=== PATIENT | male | born 1960 | race African-American/Black ===

== ENCOUNTER 2018-08-28 18:18 | Inpatient (IN) | payer OTHER ==
[2018-08-28 19:54] VITALS: BMI 23.6
--- NOTE | 2018-08-29 00:52 | HP ---
CIWA Score Nausea/Vomitin-No Nausea/No Vomiting Muscle Tremors: 4-Moderate,w/Arms Extend Anxiety: 1-Mildly Anxious Agitation: 4-Moderately Restless Paroxysmal Sweats: 3 Orientation: 0-Oriented Tacttile Disturbances: 0-None Auditory Disturbances: 0-None Visual Disturbances: 0-None Headache: 0-None Present CIWA-Ar Total Score: 12 - Admission Criteria OAS Guidelines: Admission for Medically Managed Detox: Requires at least one of the followin. CIWA greater than 12 2. Seizures within the past 24 hours 3. Delirium tremens within the past 24 hours 4. Hallucinations within the past 24 hours 5. Acute intervention needed for co occurring medical disorder 6. Acute intervention needed for co occurring psychiatric disorder 7. Severe withdrawal that cannot be handled at a lower level of care (continued vomiting, continued diarrhea, abnormal vital signs) requiring intravenous medication and/or fluids 8. Patient presents the following: CIWA greater than 12 Admission Criteria Met: Admission criteria met Admission ROS [facility] Chief Complaint: C/O WORSENING WITHDRAWAL SX'S. SEEKING DETOX FROM ALCOHOL Allergies/Adverse Reactions: Allergies Allergy/AdvReac Type Severity Reaction Status Date / Time No Known Allergies Allergy Verified 03/13/14 09:31 History of Present Illness: 58 Y.O. MALE WITH ALCOHOLISM HERE FOR DETOX. CLIENT IS KNOWN TO THIS PROGRAM. LAST HERE 2013. HE WAS REFERRED BY [facility] AFTER PRESENTING THERE FOR DETOX. HE PRESENTS NOW WITH C/O WORSENING WITHDRAWAL SX'S. CIWA 12. DENIES ANY PMHX/ PSYCH. REPORTS LONGEST CLEAN TIME 1.5 YEARS WHILE INCARCERATED, DENIES ANY CLEAN TIME IN THE PAST YEAR. DENIES PAST/PRESENT SI/HI/AVH, SEIZURE D/O. LIVES IN A SENIOR CARE, EMPLOYED, DENIES LEGALS. Exam Limitations: No Limitations - Ebola screening Have you traveled outside of the country in the last 21 days: No Have you had contact with anyone from an Ebola affected area: No Have you been sick,other than usual withdrawal symptoms: No Do you have a fever: No - Review of Systems Constitutional: Chills, Loss of Appetite, Malaise, Night Sweats, Changes in sleep EENT: reports: No Symptoms Reported Respiratory: reports: No Symptoms reported Cardiac: reports: No Symptoms Reported GI: reports: Poor Appetite, Poor Fluid Intake : reports: No Symptoms Reported Musculoskeletal: reports: Joint Pain, Muscle Pain Integumentary: reports: No Symptoms Reported Neuro: reports: No Symptoms reported Endocrine: reports: No Symptoms Reported Hematology: reports: No Symptoms Reported Psychiatric: reports: Anxious, Depressed Other Systems: Reviewed and Negative Patient History - Patient Medical History Hx Anemia: No Hx Asthma: No Hx Chronic Obstructive Pulmonary Disease (COPD): No Hx Cancer: No Hx Cardiac Disorders: No Hx Congestive Heart Failure: No Hx Hypertension: No Hx Hypercholesterolemia: No Hx Pacemaker: No HX Cerebrovascular Accident: No Hx Seizures: No Hx Dementia: No Hx Diabetes: No Hx Gastrointestinal Disorders: No Hx Liver Disease: No (Hep B treated 2011) Hx Genitourinary Disorders: No Hx Sexually Transmitted Disorders: No Hx Renal Disease (ESRD): No Hx Thyroid Disease: No Hx Human Immunodeficiency Virus (HIV): No Hx Hepatitis C: No Hx Depression: No Hx Suicide Attempt: No Hx Bipolar Disorder: No Hx Schizophrenia: No - Patient Surgical History Past Surgical History: No Hx Neurologic Surgery: No Hx Cataract Extraction: No Hx Cardiac Surgery: No Hx Lung Surgery: No Hx Breast Surgery: No Hx Breast Biopsy: No Hx Abdominal Surgery: No Hx Appendectomy: No Hx Cholecystectomy: No Hx Genitourinary Surgery: No Hx Section: No Hx Orthopedic Surgery: No Anesthesia Reaction: No - PPD History Previous Implant?: Yes Documented Results: Negative w/proof Implanted On Prior R Admission?: Yes Date: 03/15/14 Results: 0MM PPD to be Administered?: Yes - Smoking Cessation Smoking history: Current every day smoker Have you smoked in the past 12 months: Yes Aproximately how many cigarettes per day: 5 Cigars Per Day: 0 Hx Chewing Tobacco Use: No Initiated information on smoking cessation: Yes 'Breaking Loose' booklet given: 08/29/18 - Substance & Tx. History Hx Alcohol Use: Yes Hx Substance Use: Yes Substance Use Type: Alcohol, Cocaine, Marijuana Hx Substance Use Treatment: Yes ([facility]) - Substances Abused LIQUOR/BEER Route: Oral Frequency: Daily Amount used: 1/2 PINT/ 5-24OZ Age of first use: 19 Date of Last Use: 08/28/18 COCAINE Route: Smoking Frequency: Daily Amount used: 100 Age of first use: 32 Date of Last Use: 08/28/18 THC Route: Smoking Frequency: Daily Amount used: 10 Age of first use: 19 Date of Last Use: 08/28/18 Family Disease History - Family Disease History Family Disease History: Other: Father () Admission Physical Exam [facility] - Vital Signs Vital Signs: Vital Signs - 24 hr 08/28/18 19:52 Temperature 97.7 F Pulse Rate 76 Respiratory 18 Rate Blood Pressure 139/79 - Physical General Appearance: Yes: Appropriately Dressed, Mild Distress, Tremorous (FELT) , Irritable, Sweating, Anxious HEENTM: Yes: EOMI, Normocephalic, Normal Voice, MARC, Pharynx Normal Respiratory: Yes: Chest Non-Tender, Lungs Clear, Normal Breath Sounds, No Respiratory Distress, No Accessory Muscle Use Neck: Yes: No masses,lesions,Nodules, Supple, Trachea in good position Breast: Yes: Breast Exam Deferred Cardiology: Yes: Regular Rhythm, Regular Rate, S1, S2 Abdominal: Yes: Normal Bowel Sounds, Non Tender, Flat, Soft Genitourinary: Yes: Other (NO C/O) Back: Yes: Normal Inspection Musculoskeletal: Yes: full range of Motion, Gait Steady Extremities: Yes: Normal Range of Motion, Non-Tender, Tremors Neurological: Yes: Fully Oriented, Alert, Motor Strength 5/5, Depressed Affect Integumentary: Yes: Warm, Moist Lymphatic: Yes: Within Normal Limits - Diagnostic (1) Alcohol dependence with uncomplicated withdrawal Current Visit: Yes Status: Acute (2) Nicotine dependence Current Visit: Yes Status: Chronic Qualifiers: Nicotine product type: cigarettes Substance use status: uncomplicated Qualified Code(s): F17.210 - Nicotine dependence, cigarettes, uncomplicated (3) Cannabis dependence, uncomplicated Current Visit: Yes Status: Acute (4) Depressed affect Current Visit: Yes Status: Suspected (5) At risk for dehydration due to poor fluid intake Current Visit: Yes Status: Acute (6) Cocaine dependence Current Visit: Yes Status: Acute Qualifiers: Substance use status: uncomplicated Qualified Code(s): F14.20 - Cocaine dependence, uncomplicated Cleared for Admission [facility] - Detox or Rehab [facility] Level of Care: Medically Managed Detox Regimen/Protocol: Librium Claeared for Rehab Admission: No [facility] Breath Alcohol Content Breath Alcohol Content: 0.031 Urine Drug Screen - Results Drug Screen Negative: No Urine Drug Screen Results: THC-Marijuana, MARGAUX-Cocaine
[2018-08-29] MEDS ORDERED: MAGNESIUM CITRATE 300 ML BOTTLE PO PRN (01:02)
[2018-08-29] MEDS ORDERED: P-EPHED 60MG/TRIPROLIDI 2.5MG TABLET PO PRN (01:02)
[2018-08-29] MEDS ORDERED: MAGNESIUM HYDROX 2400MG/30ML ORAL SUSPENSION 30 ML CUP PO PRN (01:02)
[2018-08-29] MEDS ORDERED: NICOTINE POLACRILEX 2 MG GUM BC PRN (01:02)
[2018-08-29] MEDS ORDERED: MAG HYDROX/AL HYDROX/SIMETH 30 ML UNIT-DOSE CUP PO PRN (01:02)
[2018-08-29] MEDS ORDERED: MENTHOL/PHENOL 1 EACH UD MM PRN (01:02)
[2018-08-29] MEDS ORDERED: chlordiazePOXIDE HCL 25 MG CAPSULE PO PRN (01:02)
[2018-08-29] MEDS ORDERED: guaiFENesin/D-METHORPHAN HB 10 ML UNIT-DOSE CUPS PO PRN (01:02)
[2018-08-29] MEDS ORDERED: ACETAMINOPHEN 325 MG TABLET (FP) PO PRN (01:02)
[2018-08-29] MEDS ORDERED: IBUPROFEN 400 MG TABLET (FP) PO PRN (01:02)
[2018-08-29] MEDS ORDERED: hydrOXYzine PAMOATE 50 MG CAPSULE (FP) PO PRN (01:02)
[2018-08-29] MEDS ORDERED: LOPERAMIDE HCL 2 MG CAPSULE PO PRN (01:02)
[2018-08-29] MEDS: chlordiazePOXIDE HCL 25 MG CAPSULE PO SCH ×4 (05:16→22:23)
[2018-08-29 10:12] LABS: HEMATOCRIT 44.1 % (35.4-49); HEMOGLOBIN 14.6 GM/dL (11.7-16.9); MCH 32.1 pg (25.7-33.7); MCHC 33.1 g/dl (32.0-35.9); MEAN PLT VOLUME 7.3 fl (7.5-11.1); PLATELET COUNT 227 K/MM3 (134-434); RBC 4.55 M/mm3 (4.00-5.60); WHITE BLOOD COUNT 4.8 K/mm3 (4.0-10.0)
[2018-08-29 10:16] LABS: ALBUMIN 3.5 g/dl (3.4-5.0); ALK PHOS 102 U/L (45-117); ANION GAP 7 MMOL/L (8-16); BILIRUBIN,TOTAL 1.2 mg/dL (0.2-1); BLOOD UREA NITROGEN 15 mg/dL (7-18); CALCIUM 8.4 mg/dL (8.5-10.1); CHLORIDE 103 mmol/L (98-107); CO2 29 mmol/L (21-32); CREATININE 1.2 mg/dL (0.55-1.3); GLUCOSE,RANDOM 89 mg/dL (74-106); POTASSIUM 3.8 mmol/L (3.5-5.1); SGOT/AST 36 U/L (15-37); SGPT/ALT 31 U/L (13-61); SODIUM 139 mmol/L (136-145); TOT PROT 6.7 g/dl (6.4-8.2)
[2018-08-29] MEDS: PRENATAL VITAMINS W/ FOLIC ACID TABLET (FP) PO SCH (10:17)
[2018-08-29] MEDS: NICOTINE 14 MG/24 HOURS TOPICAL PATCH TD SCH (10:18)
[2018-08-29 10:21] LABS: URINE APPEARANCE CLEAR; URINE BILIRUBIN NEGATIVE (<2.0 mg/dL); URINE COLOR YELLOW; URINE GLUCOSE (UA) NEGATIVE (NEGATIVE); URINE KETONE NEGATIVE (NEGATIVE); URINE LEUK ESTERASE NEGATIVE (NEGATIVE); URINE NITRITE NEGATIVE (NEGATIVE); URINE PROTEIN NEGATIVE (NEGATIVE); URINE UROBILINOGEN 4.0 E.U/dl mg/dL (0.2-1.0)
--- NOTE | 2018-08-29 10:45 | PN ---
S CIWA - CIWA Score Nausea/Vomitin-No Nausea/No Vomiting Muscle Tremors: 3 Anxiety: 1-Mildly Anxious Agitation: 2 Paroxysmal Sweats: 1-Minimal Palms Moist Orientation: 1-Uncertain about Date Tacttile Disturbances: 0-None Auditory Disturbances: 0-None Visual Disturbances: 0-None Headache: 2-Mild CIWA-Ar Total Score: 10 S Progress Note (SOAP) Subjective: tremor sweat restlessness trouble resting at night Objective: 08/29/18 10:44 Vital Signs Temperature 97.4 F L 08/29/18 09:04 Pulse Rate 61 08/29/18 09:04 Respiratory Rate 18 08/29/18 09:04 Blood Pressure 118/66 08/29/18 09:04 O2 Sat by Pulse Oximetry (%) Laboratory Last Values WBC 4.8 K/mm3 (4.0-10.0) 08/29/18 07:00 RBC 4.55 M/mm3 (4.00-5.60) 08/29/18 07:00 Hgb 14.6 GM/dL (11.7-16.9) 08/29/18 07:00 Hct 44.1 % (35.4-49) 08/29/18 07:00 MCV 97.0 fl (80-96) H 08/29/18 07:00 MCH 32.1 pg (25.7-33.7) 08/29/18 07:00 MCHC 33.1 g/dl (32.0-35.9) 08/29/18 07:00 RDW 13.0 % (11.9-15.9) 08/29/18 07:00 Plt Count 227 K/MM3 (134-434) D 08/29/18 07:00 MPV 7.3 fl (7.5-11.1) L D 08/29/18 07:00 Sodium 139 mmol/L (136-145) 08/29/18 07:00 Potassium 3.8 mmol/L (3.5-5.1) 08/29/18 07:00 Chloride 103 mmol/L (98-107) 08/29/18 07:00 Carbon Dioxide 29 mmol/L (21-32) 08/29/18 07:00 Anion Gap 7 MMOL/L (8-16) L 08/29/18 07:00 BUN 15 mg/dL (7-18) 08/29/18 07:00 Creatinine 1.2 mg/dL (0.55-1.3) 08/29/18 07:00 Creat Clearance w eGFR > 60 (>60) 08/29/18 07:00 Random Glucose 89 mg/dL (74-106) 08/29/18 07:00 Calcium 8.4 mg/dL (8.5-10.1) L 08/29/18 07:00 Total Bilirubin 1.2 mg/dL (0.2-1) H 08/29/18 07:00 AST 36 U/L (15-37) 08/29/18 07:00 ALT 31 U/L (13-61) 08/29/18 07:00 Alkaline Phosphatase 102 U/L (45-117) 08/29/18 07:00 Total Protein 6.7 g/dl (6.4-8.2) 08/29/18 07:00 Albumin 3.5 g/dl (3.4-5.0) 08/29/18 07:00 Urine Color Yellow 08/29/18 07:38 Urine Appearance Clear 08/29/18 07:38 Urine pH 5.0 (5.0-8.0) 08/29/18 07:38 Ur Specific [place] 1.023 (1.010-1.035) 08/29/18 07:38 Urine Protein Negative (NEGATIVE) 08/29/18 07:38 Urine Glucose (UA) Negative (NEGATIVE) 08/29/18 07:38 Urine Ketones Negative (NEGATIVE) 08/29/18 07:38 Urine Blood Negative (NEGATIVE) 08/29/18 07:38 Urine Nitrite Negative (NEGATIVE) 08/29/18 07:38 Urine Bilirubin Negative (<2.0 mg/dL) 08/29/18 07:38 Urine Urobilinogen 4.0 e.u/dl mg/dL (0.2-1.0) 08/29/18 07:38 Ur Leukocyte Esterase Negative (NEGATIVE) 08/29/18 07:38 lab noted Assessment: 08/29/18 10:44 withdrawal sx Plan: continue detox
[2018-08-29] MEDS ORDERED: MELATONIN 5 MG TABLETS PO PRN (22:00)
[2018-08-29] MEDS: THIAMINE HCL 100 MG TABLET (FP) PO SCH (22:23)
[2018-08-30] MEDS: chlordiazePOXIDE HCL 25 MG CAPSULE PO SCH ×4 (06:12→22:41)
[2018-08-30] MEDS: NICOTINE 14 MG/24 HOURS TOPICAL PATCH TD SCH (10:09)
[2018-08-30] MEDS: PRENATAL VITAMINS W/ FOLIC ACID TABLET (FP) PO SCH (10:09)
--- NOTE | 2018-08-30 10:09 | PN ---
S CIWA - CIWA Score Nausea/Vomitin Muscle Tremors: 2 Anxiety: 2 Agitation: 2 Paroxysmal Sweats: 1-Minimal Palms Moist Orientation: 0-Oriented Tacttile Disturbances: 1-Very Mild Itch/Numbness Auditory Disturbances: 1-Very Mild Visual Disturbances: 0-None Headache: 2-Mild CIWA-Ar Total Score: 13 [facility] Progress Note (SOAP) Subjective: alert,irritable,anxious,interrupted sleep,tremor Objective: 08/30/18 10:08 Vital Signs Temperature 97.2 F L 08/30/18 06:25 Pulse Rate 55 L 08/30/18 09:50 Respiratory Rate 16 08/30/18 09:50 Blood Pressure 123/84 08/30/18 09:50 O2 Sat by Pulse Oximetry (%) Laboratory Last Values WBC 4.8 K/mm3 (4.0-10.0) 08/29/18 07:00 RBC 4.55 M/mm3 (4.00-5.60) 08/29/18 07:00 Hgb 14.6 GM/dL (11.7-16.9) 08/29/18 07:00 Hct 44.1 % (35.4-49) 08/29/18 07:00 MCV 97.0 fl (80-96) H 08/29/18 07:00 MCH 32.1 pg (25.7-33.7) 08/29/18 07:00 MCHC 33.1 g/dl (32.0-35.9) 08/29/18 07:00 RDW 13.0 % (11.9-15.9) 08/29/18 07:00 Plt Count 227 K/MM3 (134-434) D 08/29/18 07:00 MPV 7.3 fl (7.5-11.1) L D 08/29/18 07:00 Sodium 139 mmol/L (136-145) 08/29/18 07:00 Potassium 3.8 mmol/L (3.5-5.1) 08/29/18 07:00 Chloride 103 mmol/L (98-107) 08/29/18 07:00 Carbon Dioxide 29 mmol/L (21-32) 08/29/18 07:00 Anion Gap 7 MMOL/L (8-16) L 08/29/18 07:00 BUN 15 mg/dL (7-18) 08/29/18 07:00 Creatinine 1.2 mg/dL (0.55-1.3) 08/29/18 07:00 Creat Clearance w eGFR > 60 (>60) 08/29/18 07:00 Random Glucose 89 mg/dL (74-106) 08/29/18 07:00 Calcium 8.4 mg/dL (8.5-10.1) L 08/29/18 07:00 Total Bilirubin 1.2 mg/dL (0.2-1) H 08/29/18 07:00 AST 36 U/L (15-37) 08/29/18 07:00 ALT 31 U/L (13-61) 08/29/18 07:00 Alkaline Phosphatase 102 U/L (45-117) 08/29/18 07:00 Total Protein 6.7 g/dl (6.4-8.2) 08/29/18 07:00 Albumin 3.5 g/dl (3.4-5.0) 08/29/18 07:00 Urine Color Yellow 08/29/18 07:38 Urine Appearance Clear 08/29/18 07:38 Urine pH 5.0 (5.0-8.0) 08/29/18 07:38 Ur Specific [place] 1.023 (1.010-1.035) 08/29/18 07:38 Urine Protein Negative (NEGATIVE) 08/29/18 07:38 Urine Glucose (UA) Negative (NEGATIVE) 08/29/18 07:38 Urine Ketones Negative (NEGATIVE) 08/29/18 07:38 Urine Blood Negative (NEGATIVE) 08/29/18 07:38 Urine Nitrite Negative (NEGATIVE) 08/29/18 07:38 Urine Bilirubin Negative (<2.0 mg/dL) 08/29/18 07:38 Urine Urobilinogen 4.0 e.u/dl mg/dL (0.2-1.0) 08/29/18 07:38 Ur Leukocyte Esterase Negative (NEGATIVE) 08/29/18 07:38 RPR Titer Nonreactive (NONREACTIVE) 08/29/18 07:00 HIV 1&2 Antibody Screen Negative 08/29/18 07:00 HIV P24 Antigen Negative 08/29/18 07:00 Assessment: 08/30/18 10:08 withdrawal symptom Plan: continue detox
[2018-08-30] MEDS: THIAMINE HCL 100 MG TABLET (FP) PO SCH (22:40)
[2018-08-31] MEDS: chlordiazePOXIDE 5 MG CAPSULE PO SCH ×4 (05:11→22:37)
[2018-08-31] MEDS: PRENATAL VITAMINS W/ FOLIC ACID TABLET (FP) PO SCH (10:52)
[2018-08-31] MEDS: NICOTINE 14 MG/24 HOURS TOPICAL PATCH TD SCH (10:53)
--- NOTE | 2018-08-31 12:01 | PN ---
[facility] Progress Note (SOAP) Subjective: DETOX PROCEEDING WELL. 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 PT WAS GIVEN A PPD ON ADMISSION WITH RAISED INDURATION. PT WAS REMINDED TO REPORT HX IN FUTURE. Objective: 08/31/18 11:59 Vital Signs 08/31/18 08/31/18 06:08 09:54 Temperature 97 F L 96.9 F L Pulse Rate 60 70 Respiratory 18 18 Rate Blood Pressure 95/60 120/78 Laboratory Tests 08/29/18 08/29/18 08/29/18 07:00 07:00 07:00 WBC 4.8 RBC 4.55 Hgb 14.6 Hct 44.1 MCV 97.0 H MCH 32.1 MCHC 33.1 RDW 13.0 Plt Count 227 D MPV 7.3 L D Sodium 139 Potassium 3.8 Chloride 103 Carbon Dioxide 29 Anion Gap 7 L BUN 15 Creatinine 1.2 Creat Clearance w eGFR > 60 Random Glucose 89 Calcium 8.4 L Total Bilirubin 1.2 H AST 36 ALT 31 Alkaline Phosphatase 102 Total Protein 6.7 Albumin 3.5 Urine Color Urine Appearance Urine pH Ur Specific [place] Urine Protein Urine Glucose (UA) Urine Ketones Urine Blood Urine Nitrite Urine Bilirubin Urine Urobilinogen Ur Leukocyte Esterase RPR Titer Nonreactive HIV 1&2 Antibody Screen HIV P24 Antigen 08/29/18 08/29/18 07:00 07:38 WBC RBC Hgb Hct MCV MCH MCHC RDW Plt Count MPV Sodium Potassium Chloride Carbon Dioxide Anion Gap BUN Creatinine Creat Clearance w eGFR Random Glucose Calcium Total Bilirubin AST ALT Alkaline Phosphatase Total Protein Albumin Urine Color Yellow Urine Appearance Clear Urine pH 5.0 Ur Specific [place] 1.023 Urine Protein Negative Urine Glucose (UA) Negative Urine Ketones Negative Urine Blood Negative Urine Nitrite Negative Urine Bilirubin Negative Urine Urobilinogen 4.0 e.u/dl Ur Leukocyte Esterase Negative RPR Titer HIV 1&2 Antibody Screen Negative HIV P24 Antigen Negative Assessment: 08/31/18 11:59 SLIGHT W/S NAD Plan: CONTINUE DETOX. FOLLOW UP WITH [facility] IN AM PER DISCHARGE PLANNING. CXR ON SUNDAY WHILE IN REHAB
--- NOTE | 2018-08-31 12:59 | EKG ---
Test Reason : Blood Pressure : / mmHG Vent. Rate : 055 BPM Atrial Rate : 055 BPM P-R Int : 194 ms QRS Dur : 084 ms QT Int : 462 ms P-R-T Axes : 069 052 047 degrees QTc Int : 441 ms SINUS BRADYCARDIA LEFT ATRIAL ENLARGEMENT MINIMAL VOLTAGE CRITERIA FOR LVH, MAY BE NORMAL VARIANT BORDERLINE ECG NO PREVIOUS ECGS AVAILABLE Confirmed by MD GABRIELA, LAKEISHA ([id number]) on 08/31/2018 12:58:39 PM Referred By: Confirmed By:LAKEISHA OCHOA MD
[2018-08-31 21:00] VITALS: BP 118/67; PULSE 71; TEMP 98.6
[2018-08-31] MEDS: THIAMINE HCL 100 MG TABLET (FP) PO SCH (22:37)
--- NOTE | 2018-08-31 22:51 | DS ---
[facility] Detox Discharge Summary Admission Date: 08/28/18 Discharge Date: 08/31/18 - History Additional Comments: Patient is leaving against medical advice stating that he has personal business to take care of. Risks and consequences of his action reinforced. Patient is alert and oriented to person, place and time. Vital signs stable and he is in no acute distress at this time. He signed the AMA form and left. 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 Pertinent Past History: Alcohol, cannabis and cocaine dependence, Positive PPD and nicotine dependence - Physical Exam Results Vital Signs: Vital Signs Temperature 98.6 F 08/31/18 20:59 Pulse Rate 71 08/31/18 20:59 Respiratory Rate 20 08/31/18 20:59 Blood Pressure 118/67 08/31/18 20:59 O2 Sat by Pulse Oximetry (%) Laboratory Last Values WBC 4.8 K/mm3 (4.0-10.0) 08/29/18 07:00 RBC 4.55 M/mm3 (4.00-5.60) 08/29/18 07:00 Hgb 14.6 GM/dL (11.7-16.9) 08/29/18 07:00 Hct 44.1 % (35.4-49) 08/29/18 07:00 MCV 97.0 fl (80-96) H 08/29/18 07:00 MCH 32.1 pg (25.7-33.7) 08/29/18 07:00 MCHC 33.1 g/dl (32.0-35.9) 08/29/18 07:00 RDW 13.0 % (11.9-15.9) 08/29/18 07:00 Plt Count 227 K/MM3 (134-434) D 08/29/18 07:00 MPV 7.3 fl (7.5-11.1) L D 08/29/18 07:00 Sodium 139 mmol/L (136-145) 08/29/18 07:00 Potassium 3.8 mmol/L (3.5-5.1) 08/29/18 07:00 Chloride 103 mmol/L (98-107) 08/29/18 07:00 Carbon Dioxide 29 mmol/L (21-32) 08/29/18 07:00 Anion Gap 7 MMOL/L (8-16) L 08/29/18 07:00 BUN 15 mg/dL (7-18) 08/29/18 07:00 Creatinine 1.2 mg/dL (0.55-1.3) 08/29/18 07:00 Creat Clearance w eGFR > 60 (>60) 08/29/18 07:00 Random Glucose 89 mg/dL (74-106) 08/29/18 07:00 Calcium 8.4 mg/dL (8.5-10.1) L 08/29/18 07:00 Total Bilirubin 1.2 mg/dL (0.2-1) H 08/29/18 07:00 AST 36 U/L (15-37) 08/29/18 07:00 ALT 31 U/L (13-61) 08/29/18 07:00 Alkaline Phosphatase 102 U/L (45-117) 08/29/18 07:00 Total Protein 6.7 g/dl (6.4-8.2) 08/29/18 07:00 Albumin 3.5 g/dl (3.4-5.0) 08/29/18 07:00 Urine Color Yellow 08/29/18 07:38 Urine Appearance Clear 08/29/18 07:38 Urine pH 5.0 (5.0-8.0) 08/29/18 07:38 Ur Specific [place] 1.023 (1.010-1.035) 08/29/18 07:38 Urine Protein Negative (NEGATIVE) 08/29/18 07:38 Urine Glucose (UA) Negative (NEGATIVE) 08/29/18 07:38 Urine Ketones Negative (NEGATIVE) 08/29/18 07:38 Urine Blood Negative (NEGATIVE) 08/29/18 07:38 Urine Nitrite Negative (NEGATIVE) 08/29/18 07:38 Urine Bilirubin Negative (<2.0 mg/dL) 08/29/18 07:38 Urine Urobilinogen 4.0 e.u/dl mg/dL (0.2-1.0) 08/29/18 07:38 Ur Leukocyte Esterase Negative (NEGATIVE) 08/29/18 07:38 RPR Titer Nonreactive (NONREACTIVE) 08/29/18 07:00 HIV 1&2 Antibody Screen Negative 08/29/18 07:00 HIV P24 Antigen Negative 08/29/18 07:00 Pertinent Admission Physical Exam Findings: Withdrawal symptoms - Medication Discharge Medications: Ambulatory Orders NK [No Known Home Medication] 03/13/14 - Diagnosis (1) Alcohol dependence with uncomplicated withdrawal Current Visit: Yes Status: Acute (2) Cannabis dependence, uncomplicated Current Visit: Yes Status: Acute (3) Cocaine dependence Current Visit: Yes Status: Acute Qualifiers: Substance use status: uncomplicated Qualified Code(s): F14.20 - Cocaine dependence, uncomplicated (4) Nicotine dependence Current Visit: Yes Status: Acute Qualifiers: Nicotine product type: cigarettes Substance use status: in withdrawal Qualified Code(s): F17.213 - Nicotine dependence, cigarettes, with withdrawal (5) History of positive PPD Current Visit: Yes Status: Chronic (6) Substance induced mood disorder Current Visit: No Status: Acute - AMA Did Patient Leave Against Medical Advice: Yes
[2018-09-01] MEDS ORDERED: chlordiazePOXIDE HCL 10 MG CAPSULE PO SCH (05:00)
== END 2018-08-31 23:10 | disposition left against medical advice (07) | DRG 770 ==
LOC: YASAS 18:18 → Y3N 23:31
PROC: HZ2ZZZZ Detoxification Services for Substance Abuse Treatment (ICD-10-PCS; principal; 2018-08-28)
DX: F10.230 Alcohol dependence with withdrawal, uncomplicated (principal); F14.20 Cocaine dependence, uncomplicated; F12.20 Cannabis dependence, uncomplicated; F17.213 Nicotine dependence, cigarettes, with withdrawal; F19.24 Other psychoactive substance dependence with psychoactive substance-induced mood disorder; R45.89 Other symptoms and signs involving emotional state; R76.11 Nonspecific reaction to tuberculin skin test without active tuberculosis; Z86.19 Personal history of other infectious and parasitic diseases; Z91.89 Other specified personal risk factors, not elsewhere classified
CPT/HCPCS: 36415; 80053; 81003; 85027; 86593; 87389; 93005; 93010

== ENCOUNTER 2018-09-02 12:15 | Inpatient (IN) | payer OTHER ==
[2018-09-02 12:42] VITALS: BMI 22.1
--- NOTE | 2018-09-02 15:09 | HP ---
CIWA Score - Admission Criteria [facility] Guidelines: Admission for Medically Managed Detox: Requires at least one of the followin. CIWA greater than 12 2. Seizures within the past 24 hours 3. Delirium tremens within the past 24 hours 4. Hallucinations within the past 24 hours 5. Acute intervention needed for co occurring medical disorder 6. Acute intervention needed for co occurring psychiatric disorder 7. Severe withdrawal that cannot be handled at a lower level of care (continued vomiting, continued diarrhea, abnormal vital signs) requiring intravenous medication and/or fluids 8. Admission ROS [facility] - HPI Chief Complaint: i need help to come in for rehab from alcohol,cocaine and marijuana Allergies/Adverse Reactions: Allergies Allergy/AdvReac Type Severity Reaction Status Date / Time No Known Allergies Allergy Verified 09/02/18 14:54 History of Present Illness: this 58 years old male with alcohol,cocaine,marijuana dependence,seeking rehab, last treatment [facility] from 08/28/18 to 08/31/18,not completed hepatitis b weight loss nicotine dependence Exam Limitations: No Limitations - Ebola screening Have you traveled outside of the country in the last 21 days: No Have you had contact with anyone from an Ebola affected area: No Have you been sick,other than usual withdrawal symptoms: No Do you have a fever: No - Review of Systems Constitutional: No Symptoms Reported EENT: reports: No Symptoms Reported, Other (patial denture upper) Respiratory: reports: No Symptoms reported Cardiac: reports: No Symptoms Reported GI: reports: No Symptoms Reported : reports: No Symptoms Reported Musculoskeletal: reports: No Symptoms Reported Integumentary: reports: No Symptoms Reported Neuro: reports: No Symptoms reported Endocrine: reports: No Symptoms Reported Hematology: reports: No Symptoms Reported Psychiatric: reports: No Sypmtoms Reported, Judgement Intact, Mood/Affect Appropiate, Orientated x3 Other Systems: Reviewed and Negative Patient History - Patient Medical History Hx Anemia: No Hx Asthma: No Hx Chronic Obstructive Pulmonary Disease (COPD): No Hx Cancer: No Hx Cardiac Disorders: No Hx Congestive Heart Failure: No Hx Hypertension: No Hx Hypercholesterolemia: No Hx Pacemaker: No HX Cerebrovascular Accident: No Hx Seizures: No Hx Dementia: No Hx Diabetes: No Hx Gastrointestinal Disorders: No Hx Liver Disease: No (Hep B treated 2011) Hx Genitourinary Disorders: No Hx Sexually Transmitted Disorders: No Hx Renal Disease (ESRD): No Hx Thyroid Disease: No Hx Human Immunodeficiency Virus (HIV): No (last 08/28/18 negative) Hx Hepatitis C: No Hx Depression: No Hx Suicide Attempt: No Hx Bipolar Disorder: No Hx Schizophrenia: No Other Medical History: no suicidal,no homicidal - Patient Surgical History Past Surgical History: No Hx Neurologic Surgery: No Hx Cataract Extraction: No Hx Cardiac Surgery: No Hx Lung Surgery: No Hx Breast Surgery: No Hx Breast Biopsy: No Hx Abdominal Surgery: No Hx Appendectomy: No Hx Cholecystectomy: No Hx Genitourinary Surgery: No Hx Section: No Hx Orthopedic Surgery: No Anesthesia Reaction: No - PPD History Previous Implant?: Yes Documented Results: Positive w/o proof Date: 08/31/18 Results: 15mm PPD to be Administered?: No - Smoking Cessation Smoking history: Current every day smoker Have you smoked in the past 12 months: Yes Aproximately how many cigarettes per day: 5 Cigars Per Day: 0 Hx Chewing Tobacco Use: No Initiated information on smoking cessation: Yes 'Breaking Loose' booklet given: 09/02/18 - Substance & Tx. History Hx Alcohol Use: Yes Hx Substance Use: Yes Substance Use Type: Alcohol, Cocaine, Marijuana Hx Substance Use Treatment: Yes ([facility] 08/28/18 to 08/31/18) - Substances Abused Alcohol Route: Oral Frequency: Daily Amount used: 2-6 24 oz beers Age of first use: 19 Date of Last Use: 08/27/18 Crack Route: Smoking Frequency: 3-6 times per week Amount used: $50-100 Age of first use: 32 Date of Last Use: 08/31/18 Marijuana/Hashish Route: Smoking Frequency: Daily Amount used: $10 Age of first use: 19 Date of Last Use: 08/28/18 Family Disease History - Family Disease History Family Disease History: Other: Father () Admission Physical Exam BHS - Vital Signs Vital Signs: Vital Signs - 24 hr 09/02/18 12:40 Temperature 97.4 F L Pulse Rate 56 L Respiratory 18 Rate Blood Pressure 133/67 - Physical General Appearance: Yes: Within Normal Limits HEENTM: Yes: Within Normal Limits Respiratory: Yes: Within Normal Limits Neck: Yes: Within Normal Limits, Supple, Trachea in good position Breast: Yes: Within Normal Limits Cardiology: Yes: Within Normal Limits, Regular Rhythm, Regular Rate, S1, S2 Abdominal: Yes: Within Normal Limits, Normal Bowel Sounds, Non Tender, Soft Genitourinary: Yes: Within Normal Limits Back: Yes: Within Normal Limits Musculoskeletal: Yes: Within Normal Limits, full range of Motion Extremities: Yes: Within Normal Limits Neurological: Yes: historiography professor II-XII NML intact, Alert, Motor Strength 5/5 Integumentary: Yes: Within Normal Limits Lymphatic: Yes: Within Normal Limits - Diagnostic (1) Alcohol dependence with uncomplicated withdrawal Current Visit: No Status: Acute (2) Cannabis dependence, uncomplicated Current Visit: No Status: Acute (3) Cocaine dependence Current Visit: No Status: Acute Qualifiers: Substance use status: uncomplicated Qualified Code(s): F14.20 - Cocaine dependence, uncomplicated (4) Nicotine dependence Current Visit: No Status: Acute Qualifiers: Nicotine product type: cigarettes Substance use status: in withdrawal Qualified Code(s): F17.213 - Nicotine dependence, cigarettes, with withdrawal (5) History of positive PPD Current Visit: No Status: Chronic Cleared for Admission [facility] - Detox or Rehab Claeared for Rehab Admission: Yes [facility] Breath Alcohol Content Breath Alcohol Content: 0 Urine Drug Screen - Results Drug Screen Negative: No Urine Drug Screen Results: THC-Marijuana, MARGAUX-Cocaine, BZO-Benzodiazepines Inpatient Rehab Admission - Initial Determination Are CD services needed?: Yes Free of communicable disease: Yes Not in need of hospitalization: Yes - Rehab Admission Criteria Previous failed treatment: Yes Poor recovery environment: Yes Comorbidities: Yes Lacks judgement: No Patient is meeting Inpatient Rehab admission criteria:: Yes
[2018-09-02] MEDS ORDERED: LOPERAMIDE HCL 2 MG CAPSULE PO PRN (15:31)
[2018-09-02] MEDS ORDERED: IBUPROFEN 400 MG TABLET (FP) PO PRN (15:31)
[2018-09-02] MEDS ORDERED: ACETAMINOPHEN 325 MG TABLET (FP) PO PRN (15:31)
[2018-09-02] MEDS ORDERED: guaiFENesin/D-METHORPHAN HB 10 ML UNIT-DOSE CUPS PO PRN (15:31)
[2018-09-02] MEDS ORDERED: P-EPHED 60MG/TRIPROLIDI 2.5MG TABLET PO PRN (15:31)
[2018-09-02] MEDS ORDERED: MAGNESIUM HYDROX 2400MG/30ML ORAL SUSPENSION 30 ML CUP PO PRN (15:31)
[2018-09-02] MEDS ORDERED: MAG HYDROX/AL HYDROX/SIMETH 30 ML UNIT-DOSE CUP PO PRN (15:31)
[2018-09-02] MEDS ORDERED: MAGNESIUM CITRATE 300 ML BOTTLE PO PRN (15:31)
[2018-09-02] MEDS ORDERED: MENTHOL/PHENOL 1 EACH UD MM PRN (15:31)
[2018-09-02] MEDS: MELATONIN 5 MG TABLETS PO PRN (21:24)
[2018-09-02] MEDS: THIAMINE HCL 100 MG TABLET (FP) PO SCH (21:24)
[2018-09-03] MEDS: PRENATAL VITAMINS W/ FOLIC ACID TABLET (FP) PO SCH (10:13)
--- NOTE | 2018-09-03 11:31 | HP ---
Psychiatrist Admission - Data Date of interview: 09/03/18 Admission source: Self-referred Identifying data: This is the first [facility] admission for this 58 years old single Black male, employed by a [employer] , homeless Medical History: Significant for history of treatment for PPD+ and Hep B in 2011. Smokes 5 cigarettes daily Psychiatric History: Denies history of previous psychiatric treatment Physical/Sexual Abuse/Trauma History: Denies history of emotional, physical or sexual abuse as well as DV relationship Additional Comment: Denies criminal history Vital Signs: Vital Signs - 24 hr 09/02/18 09/02/18 09/03/18 12:40 17:00 00:30 Temperature 97.4 F L 98.4 F Pulse Rate 56 L 56 L Respiratory 18 18 18 Rate Blood Pressure 133/67 133/68 09/03/18 09/03/18 03:30 06:46 Temperature 97.9 F Pulse Rate 56 L Respiratory 18 18 Rate Blood Pressure 112/57 L Allergies/Adverse Reactions: Allergies Allergy/AdvReac Type Severity Reaction Status Date / Time No Known Allergies Allergy Verified 09/02/18 14:54 Date of last physical exam: 09/02/18 Concur with the findings of this exam: Yes - Substance Abuse/Tx History Hx Alcohol Use: Yes Hx Substance Use: Yes Substance Use Type: Alcohol (Started drinking alcohol at age 19, consumes 2-6x 24oz of beer daily. Last drank on 08/27/18), Cocaine (Started smoking crack cocaine at age 32, consumes $50-100 worth daily. Last smoked on 08/31/18), Marijuana (Started smoking marijuana at age 19, consumes $10 worth daily. Last smoked on 08/28/18) Hx Substance Use Treatment: Yes (multiple previous inpt detox & inpt rehab admissions) Mental Status Exam - Mental Status Exam Alert and Oriented to: Time, Place, Person Cognitive Function: Fair Patient Appearance: Well Groomed Mood: Anxious Affect: Appropriate Patient Behavior: Cooperative Speech Pattern: Clear Voice Loudness: Normal Thought Process: Intact Thought Disorder: Not Present Hallucinations: Denies Suicidal Ideation: Denies Homicidal Ideation: Denies Insight/Judgement: Fair Sleep: Well Appetite: Good Muscle strength/Tone: Normal Gait/Station: Normal Psychiatric Findings - Problem List ([place] 1, 2,3) (1) Alcohol dependence Current Visit: No Status: Acute (2) Cocaine dependence Current Visit: No Status: Acute Qualifiers: Substance use status: uncomplicated Qualified Code(s): F14.20 - Cocaine dependence, uncomplicated (3) Cannabis dependence Current Visit: Yes Status: Acute (4) Nicotine dependence Current Visit: No Status: Chronic Qualifiers: Nicotine product type: cigarettes Substance use status: in withdrawal Qualified Code(s): F17.213 - Nicotine dependence, cigarettes, with withdrawal (5) History of positive PPD Current Visit: No Status: Resolved (6) Hepatitis B Current Visit: Yes Status: Resolved - Initial Treatment Plan Initial Treatment Plan: Monitor progress
[2018-09-03] MEDS: THIAMINE HCL 100 MG TABLET (FP) PO SCH (21:19)
[2018-09-04] MEDS: PRENATAL VITAMINS W/ FOLIC ACID TABLET (FP) PO SCH (10:07)
[2018-09-04] MEDS: MELATONIN 5 MG TABLETS PO PRN (21:12)
[2018-09-04] MEDS: THIAMINE HCL 100 MG TABLET (FP) PO SCH (21:12)
[2018-09-05] MEDS: PRENATAL VITAMINS W/ FOLIC ACID TABLET (FP) PO SCH (10:28)
[2018-09-05] MEDS: THIAMINE HCL 100 MG TABLET (FP) PO SCH (21:23)
[2018-09-05] MEDS: MELATONIN 5 MG TABLETS PO PRN (21:23)
[2018-09-06] MEDS: PRENATAL VITAMINS W/ FOLIC ACID TABLET (FP) PO SCH (10:43)
[2018-09-06] MEDS: THIAMINE HCL 100 MG TABLET (FP) PO SCH (21:26)
[2018-09-07] MEDS: PRENATAL VITAMINS W/ FOLIC ACID TABLET (FP) PO SCH (10:02)
[2018-09-07] MEDS: THIAMINE HCL 100 MG TABLET (FP) PO SCH (21:19)
[2018-09-07] MEDS: hydrOXYzine PAMOATE 50 MG CAPSULE (FP) PO PRN (21:21)
[2018-09-07] MEDS: MELATONIN 5 MG TABLETS PO PRN (21:21)
[2018-09-08] MEDS: PRENATAL VITAMINS W/ FOLIC ACID TABLET (FP) PO SCH (09:58)
[2018-09-08] MEDS: THIAMINE HCL 100 MG TABLET (FP) PO SCH (21:28)
[2018-09-09] MEDS: PRENATAL VITAMINS W/ FOLIC ACID TABLET (FP) PO SCH (10:30)
[2018-09-09] MEDS: hydrOXYzine PAMOATE 50 MG CAPSULE (FP) PO PRN (16:57)
[2018-09-09] MEDS: THIAMINE HCL 100 MG TABLET (FP) PO SCH (21:19)
[2018-09-10] MEDS: PRENATAL VITAMINS W/ FOLIC ACID TABLET (FP) PO SCH (10:04)
[2018-09-10] MEDS: hydrOXYzine PAMOATE 50 MG CAPSULE (FP) PO PRN ×2 (10:05→22:12)
[2018-09-10] MEDS: MELATONIN 5 MG TABLETS PO PRN (21:27)
[2018-09-10] MEDS: THIAMINE HCL 100 MG TABLET (FP) PO SCH (21:27)
[2018-09-11] MEDS: hydrOXYzine PAMOATE 50 MG CAPSULE (FP) PO PRN ×2 (09:55→21:21)
[2018-09-11] MEDS: PRENATAL VITAMINS W/ FOLIC ACID TABLET (FP) PO SCH (09:55)
[2018-09-11] MEDS: THIAMINE HCL 100 MG TABLET (FP) PO SCH (21:20)
[2018-09-12] MEDS: PRENATAL VITAMINS W/ FOLIC ACID TABLET (FP) PO SCH (10:11)
[2018-09-12] MEDS: hydrOXYzine PAMOATE 50 MG CAPSULE (FP) PO PRN ×2 (10:13→21:18)
[2018-09-12] MEDS: THIAMINE HCL 100 MG TABLET (FP) PO SCH (21:18)
[2018-09-13] MEDS: PRENATAL VITAMINS W/ FOLIC ACID TABLET (FP) PO SCH (10:03)
[2018-09-13] MEDS: THIAMINE HCL 100 MG TABLET (FP) PO SCH (21:20)
[2018-09-13] MEDS: MELATONIN 5 MG TABLETS PO PRN (21:20)
[2018-09-14] MEDS: PRENATAL VITAMINS W/ FOLIC ACID TABLET (FP) PO SCH (09:56)
[2018-09-14] MEDS: THIAMINE HCL 100 MG TABLET (FP) PO SCH (21:23)
[2018-09-14] MEDS: MELATONIN 5 MG TABLETS PO PRN (21:23)
[2018-09-15] MEDS: PRENATAL VITAMINS W/ FOLIC ACID TABLET (FP) PO SCH (10:07)
[2018-09-15] MEDS: THIAMINE HCL 100 MG TABLET (FP) PO SCH (21:17)
[2018-09-16] MEDS: PRENATAL VITAMINS W/ FOLIC ACID TABLET (FP) PO SCH (09:53)
[2018-09-16] MEDS: THIAMINE HCL 100 MG TABLET (FP) PO SCH (21:27)
--- NOTE | 2018-09-16 23:32 | PN ---
BHS Progress Note (SOAP) Subjective: c/o earing stuck in ear lobe, tenderness. denies fever, chills Objective: 09/16/18 23:28 left posterior ear lobe examined and a foreign body is visible and felt with in the tissue of the ear lobe. +tenderness, -redness, -swelling Last Vital Signs Temp Pulse Resp BP Pulse Ox 97.9 F 69 18 127/73 09/16/18 06:40 09/16/18 06:40 09/16/18 06:40 09/16/18 06:40 Assessment: 09/16/18 23:32 embedded foreign body in left ear lobe Plan: with pressure applied to anterior left earlobe, foreign body was made visible. With sterile tweezers foreign body was removed without event. Bacitracin bid to left earlobe x 5 d ice pack qid prn x 24 hours. advise client not to use left earlobe piercing until further notice cont to monitor closely for s/s of infection
[2018-09-16] MEDS: BACITRACIN 15 GM TUBE TOPICAL OINTMENT TP SCH (23:52)
[2018-09-17 07:03] VITALS: PULSE 65
[2018-09-17] MEDS: BACITRACIN 15 GM TUBE TOPICAL OINTMENT TP SCH ×2 (10:03→21:20)
[2018-09-17] MEDS: PRENATAL VITAMINS W/ FOLIC ACID TABLET (FP) PO SCH (10:03)
--- NOTE | 2018-09-17 11:28 | PN ---
Psychiatric Progress Note Vital Signs: Vital Signs Period Temp Pulse Resp BP Sys/Mack Pulse Ox Last 24 Hr 98.4 F 65 18-18 125/73 Date of Session: 09/17/18 Chief Complaint:: Discharge Note HPI: Patient addressing Alcohol, Cocaine and Cannabis Dependence comorbid with Nicotine Dependence ROS: +PPD, Hep B were medically managed Current Medications: Active Medications Generic Name Dose Route Start Last Admin Trade Name Freq PRN Reason Stop Dose Admin Acetaminophen 650 mg 09/02/18 15:31 Tylenol - PO Q4H PRN FEVER Al Hydroxide/Mg Hydroxide 30 ml 09/02/18 15:31 Mylanta Oral Suspension - PO Q6H PRN DYSPEPSIA Bacitracin 1 applic 09/16/18 23:30 09/17/18 10:03 Bacitracin - TP 09/21/18 23:29 1 applic BID MAME Administration Eucalyptus/Menthol/Phenol/Sorbitol 1 each 09/02/18 15:31 Cepastat Lozenge - MM Q4H PRN SORE THROAT Guaifenesin 10 ml 09/02/18 15:31 Robitussin Dm - PO Q6H PRN COUGH Hydroxyzine Pamoate 50 mg 09/02/18 15:31 09/12/18 21:18 Vistaril - PO 50 mg Q4H PRN Administration AGITATION Ibuprofen 400 mg 09/02/18 15:31 Motrin - PO Q6H PRN Pain level 4-6 Loperamide HCl 4 mg 09/02/18 15:31 Imodium - PO Q6H PRN DIARRHEA Magnesium Citrate 300 ml 09/02/18 15:31 Citroma - PO Q48H PRN CONSTIPATION Magnesium Hydroxide 30 ml 09/02/18 15:31 Milk Of Magnesia - PO DAILY PRN CONSTIPATION Melatonin 5 mg 09/02/18 22:00 09/14/18 21:23 Melatonin PO 5 mg HS PRN Administration INSOMNIA Multivit/Folic Acid/Iron 1 tab 09/03/18 10:00 09/17/18 10:03 Vitamins (Sjr) - PO 1 tab DAILY MAME Administration Pseudoephedrine/Triprolidine 1 combo 09/02/18 15:31 Actifed - PO TID PRN NASAL CONGESTION Thiamine HCl 100 mg 09/02/18 22:00 09/16/18 21:27 Vitamin B1 - PO 100 mg HS MAME Administration Current Side Effect: No Lab tests ordered: Yes Lab tests reviewed: Yes Provider note:: Patient will complete this program on 09/18/18. He has met his treatment goals and will continue to address his issues in outpatient treatment at [facility] at [address] [place] [address]. Told leader writer that from his participation in this program, he has learned to make meetings and get a sponsor. He is stable for discharge today Total face to face time:: 35 Mental Status Exam - Mental Status Exam Alert and Oriented to: Time, Place, Person Cognitive Function: Fair Patient Appearance: Well Groomed Mood: Hopeful, Euthymic Affect: Appropriate Patient Behavior: Cooperative Speech Pattern: Clear Voice Loudness: Normal Thought Process: Intact, Goal Oriented Thought Disorder: Not Present Hallucinations: Denies Suicidal Ideation: Denies Homicidal Ideation: Denies Insight/Judgement: Fair Sleep: Well Appetite: Good Muscle strength/Tone: Normal Gait/Station: Normal Psychiatric Treatment Plan - Problem List (1) Alcohol dependence Current Visit: No (2) Cocaine dependence Current Visit: No Qualifiers: Substance use status: uncomplicated Qualified Code(s): F14.20 - Cocaine dependence, uncomplicated (3) Cannabis dependence Current Visit: Yes (4) Nicotine dependence Current Visit: No Qualifiers: Nicotine product type: cigarettes Substance use status: in withdrawal Qualified Code(s): F17.213 - Nicotine dependence, cigarettes, with withdrawal (5) History of positive PPD Current Visit: No (6) Hepatitis B Current Visit: Yes Initial treatment plan: Patient will be discharged tomorrow and referred to [facility] for outpatient treatment
[2018-09-17] MEDS: THIAMINE HCL 100 MG TABLET (FP) PO SCH (21:20)
[2018-09-18 06:45] VITALS: BP 153/82; TEMP 98.8
[2018-09-18] MEDS: PRENATAL VITAMINS W/ FOLIC ACID TABLET (FP) PO SCH (09:32)
[2018-09-18] MEDS: BACITRACIN 15 GM TUBE TOPICAL OINTMENT TP SCH (09:32)
--- NOTE | 2018-09-18 14:37 | PN ---
S Progress Note Note: PT COMPLETED REHAB AND DISCHARGED TODAY. ALERT O X 3. PT REPORTS HE HAS NO PCP BUT WILL SEEK ONE AFTER DISCHARGE. REPORTS [facility] IS ACCESSIBLE TO HIM. MET WITH HIS COUNSELOR DONOVAN BERRY AND REFERRED TO [facility] AFTERCARE TREATMENT. Vital Signs - 24 hr 09/18/18 09/18/18 09/18/18 00:30 03:30 06:44 Temperature 98.8 F Pulse Rate 65 Respiratory 18 18 17 Rate Blood Pressure 153/82 NAD PLAN;F/U WITH AFTERCARE AT [facility] RECOMMENDED F/U AT [facility] FOR MEDICAL MANAGEMENT.
== END 2018-09-18 10:00 | disposition home or self-care (01) | DRG 772 ==
LOC: YASAS 12:15 → Y5N 15:42
PROVIDERS: ADMIT Psychiatry & Neurology Psychiatry; ATTEND Psychiatry & Neurology Psychiatry
PROC: HZ42ZZZ Group Counseling for Substance Abuse Treatment, Cognitive-Behavioral (ICD-10-PCS; principal; 2018-09-02)
DX: F10.20 Alcohol dependence, uncomplicated (principal); F14.20 Cocaine dependence, uncomplicated; F12.20 Cannabis dependence, uncomplicated; F17.213 Nicotine dependence, cigarettes, with withdrawal; B18.1 Chronic viral hepatitis B without delta-agent; R76.11 Nonspecific reaction to tuberculin skin test without active tuberculosis
CPT/HCPCS: 71046-TC-FY